=== PATIENT | male | born 1950 | race American Indian/Alaskan Native ===

== ENCOUNTER 2019-03-07 17:46 | Inpatient (IN) | payer MEDICARE, OTHER ==
[2019-03-07] MEDS ORDERED: LOPRESSOR IV ONE (18:08)
[2019-03-07] MEDS ORDERED: HEPARIN 10,000 UNITS/10 ML IV ONE (18:09)
--- NOTE | 2019-03-07 18:12 | Emergency Department Report ---
ED General Adult HPI - General Chief complaint: Weakness Stated complaint: WEAKNESS Time Seen by Provider: 03/07/19 17:46 Source: patient, EMS Mode of arrival: Stretcher Limitations: No Limitations - History of Present Illness Initial comments: Patient is a 68-year-old mellitus emergency room with complaints of weakness, headache and intermittent chest pain. Patient states the chest pain for approximately 24-48 hours. Patient states intermittent. Patient states she does have a chest pain at this time. Patient states he had chest pain when he was with EMS but after EMS given nitroglycerin and aspirin his chest pain resolved. Patient states he is still having a headache and feeling weak. Patient states headache is a 5 out of 10. Patient states that his symptoms were worsening is why he called EMS. Patient states his headache got better with the aspirin given by EMS. Patient denies blurry vision. Patient denies dizziness. -: Sudden Consistency: constant Improves with: rest Worsens with: movement Associated Symptoms: chest pain, headaches, malaise, weakness. denies: confusion, cough, diaphoresis, fever/chills, loss of appetite, nausea/vomiting, rash, seizure, shortness of breath, syncope - Related Data Home Medications Medication Instructions Recorded Confirmed Last Taken [place]-3 Fatty Acids/Fish Oil [Fish 1 cap PO DAILY 04/16/14 03/07/19 06/27/14 Oil] Aspirin [Aspirin BABY CHEW TAB] 81 mg PO QDAY 03/07/19 03/07/19 Unknown Insulin Detemir [Levemir VIAL] 25 unit SQ QAM&QHS 03/07/19 03/07/19 Unknown Insulin Regular, Human [Novolin R] See Protocol IJ QACHS 03/07/19 03/07/19 Unknown amLODIPine [Norvasc] 10 mg PO DAILY 03/07/19 03/07/19 Unknown Allergies Allergy/AdvReac Type Severity Reaction Status Date / Time No Known Allergies Allergy Verified 06/28/14 03:51 ED Review of Systems ROS: Stated complaint: WEAKNESS Other details as noted in HPI Constitutional: weakness. denies: chills, fever Eyes: denies: eye pain, eye discharge, vision change ENT: denies: ear pain, throat pain Respiratory: denies: cough, shortness of breath, wheezing Cardiovascular: chest pain. denies: palpitations Endocrine: no symptoms reported Gastrointestinal: denies: abdominal pain, nausea, diarrhea Genitourinary: denies: urgency, dysuria Musculoskeletal: denies: back pain, joint swelling, arthralgia Skin: denies: rash, lesions Neurological: headache, weakness. denies: paresthesias Psychiatric: denies: anxiety, depression Hematological/Lymphatic: denies: easy bleeding, easy bruising ED Past Medical Hx - Past Medical History Previous Medical History?: Yes Hx Hypertension: Yes Hx Diabetes: Yes Hx Liver Disease: No Hx Renal Disease: No - Surgical History Past Surgical History?: Yes Additional Surgical History: R great toe amputated (12/2014) - Family History Family history: no significant - Social History Smoking Status: Never Smoker Substance Use Type: None - Medications Home Medications: Home Medications Medication Instructions Recorded Confirmed Last Taken Type [place]-3 Fatty Acids/Fish Oil [Fish 1 cap PO DAILY 04/16/14 03/07/19 06/27/14 History Oil] Aspirin [Aspirin BABY CHEW TAB] 81 mg PO QDAY 03/07/19 03/07/19 Unknown History Insulin Detemir [Levemir VIAL] 25 unit SQ QAM&QHS 03/07/19 03/07/19 Unknown History Insulin Regular, Human [Novolin R] See Protocol IJ QACHS 03/07/19 03/07/19 Unknown History amLODIPine [Norvasc] 10 mg PO DAILY 03/07/19 03/07/19 Unknown History ED Physical Exam - General Limitations: No Limitations General appearance: alert, in no apparent distress - Head Head exam: Present: atraumatic, normocephalic - Eye Eye exam: Present: normal appearance, PERRL Pupils: Present: normal accommodation - ENT ENT exam: Present: mucous membranes moist - Neck Neck exam: Present: normal inspection - Respiratory Respiratory exam: Present: normal lung sounds bilaterally. Absent: respiratory distress, wheezes - Cardiovascular Cardiovascular Exam: Present: regular rate, normal rhythm. Absent: systolic murmur, diastolic murmur, rubs, gallop - GI/Abdominal GI/Abdominal exam: Present: soft, normal bowel sounds. Absent: distended, tende rness, guarding - Rectal Rectal exam: Present: deferred - Extremities Exam Extremities exam: Present: normal inspection - Back Exam Back exam: Present: normal inspection - Neurological Exam Neurological exam: Present: alert, oriented X3 - Psychiatric Psychiatric exam: Present: normal affect, normal mood - Skin Skin exam: Present: warm, dry, intact, normal color. Absent: rash ED Course Vital Signs 03/07/19 03/07/19 03/07/19 17:50 17:51 18:00 Temperature 98.2 F Pulse Rate 87 82 73 Respiratory 18 13 14 Rate Blood Pressure 133/72 151/73 O2 Sat by Pulse 97 97 97 Oximetry 03/07/19 03/07/19 03/07/19 18:05 18:15 18:28 Temperature Pulse Rate 76 71 Respiratory 13 15 Rate Blood Pressure 159/76 O2 Sat by Pulse 99 Oximetry 03/07/19 03/07/19 03/07/19 18:30 18:45 19:00 Temperature Pulse Rate 62 62 63 Respiratory 12 13 10 L Rate Blood Pressure 153/67 155/91 150/80 O2 Sat by Pulse 98 97 97 Oximetry 03/07/19 03/07/19 03/07/19 19:15 19:30 19:45 Temperature Pulse Rate 65 64 66 Respiratory 14 15 15 Rate Blood Pressure 155/81 155/79 157/81 O2 Sat by Pulse 99 97 97 Oximetry 03/07/19 03/07/19 03/07/19 20:01 20:15 20:30 Temperature Pulse Rate 64 63 64 Respiratory 10 L 14 16 Rate Blood Pressure 156/76 157/78 158/75 O2 Sat by Pulse 99 100 98 Oximetry 03/07/19 03/07/19 03/07/19 20:45 21:01 21:15 Temperature Pulse Rate 63 69 65 Respiratory 15 14 15 Rate Blood Pressure 160/79 167/73 174/81 O2 Sat by Pulse 98 97 99 Oximetry 03/07/19 03/07/19 03/07/19 21:30 21:45 22:00 Temperature Pulse Rate 64 69 66 Respiratory 13 16 20 Rate Blood Pressure 158/71 158/78 157/68 O2 Sat by Pulse 98 98 97 Oximetry 03/07/19 03/07/19 03/07/19 22:21 23:11 23:16 Temperature 98.1 F Pulse Rate 66 65 Respiratory 16 18 Rate Blood Pressure 144/66 151/70 O2 Sat by Pulse 99 98 Oximetry - Reevaluation(s) Reevaluation #1: Initial evaluation done. Patient had multiple EKGs done in that were transmitted to our on-call social service liaison. Patient also found to have inter mittent A. fib with RVR on the rhythm monitor but was not captured on EKG. Patient will be placed on a heparin drip and amiodarone drip as per the request of the social service liaison. Patient will also be given a statin and metoprolol 03/07/19 18:13 EKG repeated. Patient is currently on amiodarone drip and heparin drip. Patient's blood pressure stable. Patient's heart rate is improved. Patient is not going in and out of A. fib at all since given Lopressor. Patient states his symptoms are improving and his headache has resolved. 03/07/19 18:53 Patient states he is symptom free. Discussed all results with patient. Patient will be admitted to the hospitalist service. Patient agrees to plan of care. 03/07/19 19:19 - Consultations Consultation #1: Dr. Thomas, social service liaison consult to prior to arrival. Multiple EKGs sent via text to Dr. Thomas. Dr. Thomas states this is not a STEMI and wants the patient worked up medically and given amiodarone drip, heparin drip, Lopressor and a statin. 03/07/19 17:42 Consultation #2: Hospitalist consulted for admission. Hospitalist to admit patient. Hospitalist to assume care patient. 03/07/19 19:19 ED Medical Decision Making - Lab Data Result diagrams: 03/07/19 18:09 03/07/19 18:09 - EKG Data -: EKG Interpreted by Ma EKG shows normal: sinus rhythm, axis, intervals, QRS complexes, ST-T waves Rate: normal - Radiology Data Radiology results: report reviewed PROCEDURE: XR CHEST 1V AP TECHNIQUE: Chest radiograph single view. HISTORY: Weakness COMPARISONS: None . FINDINGS: Heart: Normal. Mediastinum/Vessels: Normal. Lungs/Pleural space: Normal. Bony thorax: No acute osseous abnormality. Life support devices: None. IMPRESSION: No acute cardiopulmonary abnormality. - Medical Decision Making Patient is a 68-year-old mellitus emergency room with complaints of weakness, headache and chest pain. Chest pain was intermittent over the last 24 hours. Cardiology consult prior to patient arrival due to ST elevation. Frame And Scrap Crusher of the ST elevation was secondary to LVH and early re-pole. Patient was going in and out of A. fib on the manager cardiac cath. Patient was placed on amiodarone drip and heparin drip per the cardiology request. [employer] Scrap Crusher also requested Lopressor and statin to be given. Patient was given aspirin and nitroglycerin by EMS in route. Patient's symptoms resolved with therapy. Patient was admitte d to the hospitalist service. Patient's labs unremarkable except for acute renal insufficiency. - Differential Diagnosis chest pain. Weakness. NSTEMI. caba. Critical Care Time: Yes Critical care attestation.: If time is entered above; I have spent that time in minutes in the direct care of this critically ill patient, excluding procedure time. Critical Care Time: 45 minutes ED Disposition Clinical Impression: Weakness, DIETER (acute kidney injury), New onset a-fib Afib Qualifiers: Atrial fibrillation type: paroxysmal Qualified Code(s): I48.0 - Paroxysmal atrial fibrillation Chest pain Qualifiers: Chest pain type: unspecified Qualified Code(s): R07.9 - Chest pain, unspecified Headache Qualifiers: Headache type: unspecified Headache chronicity pattern: acute headache Intractability: not intractable Qualified Code(s): R51 - Headache Disposition: -09 OP ADMIT IP TO THIS HOSP Is pt being admited?: Yes Does the pt Need Aspirin: No Condition: Critical Time of Disposition: 19:21
[2019-03-07 18:28] LABS: Basophils % (Auto) 0.4 % (0.0-1.8); Eosinophils # (Auto) 0.1 K/mm3 (0.0-0.4); Eosinophils % (Auto) 0.9 % (0.0-4.3); Hematocrit 34.4 % (35.5-45.6); Hemoglobin 11.1 gm/dl (11.8-15.2); Lymphocytes # (Auto) 1.4 K/mm3 (1.2-5.4); Lymphocytes % (Auto) 15.9 % (13.4-35.0); Mean Corpuscular HGB Conc 32 % (32-34); Mean Corpuscular Volume 84 fl (84-94); Monocytes # (Auto) 0.6 K/mm3 (0.0-0.8); Monocytes % (Auto) 6.6 % (0.0-7.3); Platelet Count 323 K/mm3 (140-440); Red Blood Count 4.11 M/mm3 (3.65-5.03); Red Cell Distribution Width 13.9 % (13.2-15.2)
[2019-03-07 18:44] LABS: INR 1.1 (0.87-1.13)
[2019-03-07 18:45] LABS: Partial Thromboplastin Time 27.7 Sec. (24.2-36.6)
--- NOTE | 2019-03-07 18:48 | XRay Report ---
PROCEDURE: XR CHEST 1V AP TECHNIQUE: Chest radiograph single view. HISTORY: Weakness COMPARISONS: None . FINDINGS: Heart: Normal. Mediastinum/Vessels: Normal. Lungs/Pleural space: Normal. Bony thorax: No acute osseous abnormality. Life support devices: None. IMPRESSION: No acute cardiopulmonary abnormality. This document is electronically signed by Claudine Mckoy MD., March 07 2019 06:46:22 PM ET
[2019-03-07] MEDS: CORDARONE 150 MG in D5W 97 ML IV ONE ×2 (18:49→21:09)
[2019-03-07] MEDS: HEPARIN/ 0.45% NACL-25,000 UNIT/500 ML 25,000 UNIT/500 ML BAG IV SCH (18:50)
[2019-03-07] MEDS ORDERED: HEPARIN/ 0.45% NACL-25,000 UNIT/500 ML 25,000 UNIT/500 ML BAG IV SCH (19:00)
[2019-03-07] MEDS ORDERED: CORDARONE 900 MG in D5W 482 ML IV SCH (19:00)
[2019-03-07 19:11] LABS: Albumin 3.3 g/dL (3.9-5)
[2019-03-07] MEDS ORDERED: ULTRAM PO PRN (21:12)
[2019-03-07] MEDS ORDERED: SODIUM CHLORIDE FLUSH SYRINGE 10 ML IV PRN (21:13)
[2019-03-07] MEDS ORDERED: ZOFRAN IV PRN (21:13)
[2019-03-07] MEDS ORDERED: TYLENOL PO PRN (21:13)
[2019-03-07] MEDS ORDERED: MORPHINE IV PRN (21:14)
[2019-03-07] MEDS ORDERED: IBUPROFEN PO PRN (21:14)
[2019-03-07] MEDS ORDERED: NACL 0.9% 1000 ML 1,000 ML IV SCH (22:00)
[2019-03-07] MEDS: DIABETA PO SCH (23:29)
[2019-03-07] MEDS: GLUCOPHAGE PO SCH (23:30)
[2019-03-08] MEDS: PEPCID PO SCH ×3 (00:01→22:14)
[2019-03-08] MEDS: ZESTRIL PO SCH ×2 (00:05→09:54)
[2019-03-08] MEDS: SODIUM CHLORIDE FLUSH SYRINGE 10 ML IV SCH ×3 (00:05→22:15)
[2019-03-08] MEDS: LOPRESSOR PO SCH ×3 (01:15→22:15)
[2019-03-08 05:00] LABS: Basophils % (Auto) 0.3 % (0.0-1.8); Eosinophils # (Auto) 0.1 K/mm3 (0.0-0.4); Eosinophils % (Auto) 1.1 % (0.0-4.3); Hematocrit 33.5 % (35.5-45.6); Hemoglobin 11.1 gm/dl (11.8-15.2); Lymphocytes # (Auto) 2.1 K/mm3 (1.2-5.4); Lymphocytes % (Auto) 27.3 % (13.4-35.0); Mean Corpuscular HGB Conc 33 % (32-34); Mean Corpuscular Volume 82 fl (84-94); Monocytes # (Auto) 0.6 K/mm3 (0.0-0.8); Monocytes % (Auto) 7.8 % (0.0-7.3); Platelet Count 335 K/mm3 (140-440); Red Blood Count 4.08 M/mm3 (3.65-5.03); Red Cell Distribution Width 13.7 % (13.2-15.2)
[2019-03-08 05:11] LABS: Alanine Aminotransferase 16 units/L (7-56); Albumin 3.3 g/dL (3.9-5); BUN/Creatinine Ratio 21; Blood Urea Nitrogen 27 mg/dL (9-20); Calcium 9.3 mg/dL (8.4-10.2); Hemolysis Index 1
[2019-03-08 05:33] LABS: Bacteria,Urine 1+ /HPF (Negative); Bilirubin,Urine NEG (Negative); Blood,Urine SM (Negative); Color,Urine Straw (Yellow); Urobilinogen,Urine < 2.0 mg/dL (<2.0); WBC,Urine < 1.0 /HPF (0.0-6.0)
[2019-03-08 05:35] LABS: Amphetamine Screen,Urine PRESUMPTIVE NEGATIVE; Benzodiazepines Screen,Urine PRESUMPTIVE NEGATIVE; Cannabinoid Screen,Urine PRESUMPTIVE NEGATIVE; Cocaine Screen,Urine PRESUMPTIVE NEGATIVE; Methadone Screen,Urine PRESUMPTIVE NEGATIVE; Opiate Screen,Urine PRESUMPTIVE NEGATIVE
--- NOTE | 2019-03-08 07:27 | History and Physical Report ---
History of Present Illness Date of examination: 03/07/19 Date of admission: 03/07/19 20:35 Chief complaint: Chest pain off and on for 24 hours History of present illness: 68-year-old mellitus emergency room with complaints of weakness, headache and intermittent chest pain. Patient states the chest pain for approximately 24-48 hours. Patient states intermittent. No radiation. Patient states he had chest pain when he was with EMS but after EMS given nitroglycerin and aspirin his chest pain resolved. Patient states he is still having a headache and feels weak. Patient had a run of AFIB with rvr in ED and had chest pain associated with it. No SOB or Orthopnea Past Medical History Previous Medical History?: Yes Hypertension: Yes Diabetes: Yes - Surgical History Past Surgical History?: Yes Additional Surgical History: R second toe amputated (12/2014) Family History Family history: no significant Social History Smoking Status: Never Smoker Substance Use Type: None Medications Home Medications: Home Medications Medication Instructions Recorded Confirmed Last Taken Type [place]-3 Fatty Acids/Fish Oil [Fish 1 cap PO DAILY 04/16/14 03/07/19 06/27/14 History Oil] Aspirin [Aspirin BABY CHEW TAB] 81 mg PO QDAY 03/07/19 03/07/19 Unknown History Insulin Detemir [Levemir VIAL] 25 unit SQ QAM&QHS 03/07/19 03/07/19 Unknown History Insulin Regular, Human [Novolin R] See Protocol IJ QACHS 03/07/19 03/07/19 Unknown History amLODIPine [Norvasc] 10 mg PO DAILY 03/07/19 03/07/19 Unknown History Review of Systems ROS: Stated complaint: WEAKNESS Other details as noted in HPI Constitutional: weakness. denies: chills, fever Eyes: denies: eye pain, eye discharge, vision change ENT: denies: ear pain, throat pain Respiratory: denies: cough, shortness of breath, wheezing Cardiovascular: chest pain. denies: palpitations Endocrine: no symptoms reported Gastrointestinal: denies: abdominal pain, nausea, diarrhea Genitourinary: denies: urgency, dysuria Musculoskeletal: denies: back pain, joint swelling, arthralgia Skin: denies: rash, lesions Neurological: headache, weakness. denies: paresthesias Psychiatric: denies: anxiety, depression Hematological/Lymphatic: denies: easy bleeding, easy bruising Medications and Allergies Allergies Allergy/AdvReac Type Severity Reaction Status Date / Time No Known Allergies Allergy Verified 06/28/14 03:51 Home Medications Medication Instructions Recorded Confirmed Last Taken Type [place]-3 Fatty Acids/Fish Oil [Fish 1 cap PO DAILY 04/16/14 03/07/19 06/27/14 History Oil] Aspirin [Aspirin BABY CHEW TAB] 81 mg PO QDAY 03/07/19 03/07/19 Unknown History Insulin Detemir [Levemir VIAL] 25 unit SQ QAM&QHS 03/07/19 03/07/19 Unknown History Insulin Regular, Human [Novolin R] See Protocol IJ QACHS 03/07/19 03/07/19 Unknown History amLODIPine [Norvasc] 10 mg PO DAILY 03/07/19 03/07/19 Unknown History Active Meds: Active Medications Acetaminophen (Tylenol) 650 mg PO Q4H PRN PRN Reason: Pain MILD(1-3)/Fever >100.5/SOMMERS Atorvastatin Calcium (Lipitor) 80 mg PO QHS [facility] Last Admin: 03/08/19 00:02 Dose: 80 mg Documented by: Famotidine (Pepcid) 20 mg PO BID HAIR Last Admin: 03/08/19 00:01 Dose: 20 mg Documented by: Fish Oil (Fish Oil) 1,000 mg PO DAILY HAIR Glyburide (Diabeta) 10 mg PO QDDIAB [facility] Last Admin: 03/07/19 23:29 Dose: Not Given Documented by: Amiodarone HCl 900 mg/ (Dextrose) 500 mls @ 33.333 mls/hr IV DIRECT HAIR; Protocol Last Admin: 03/07/19 19:05 Dose: 1 mg/min, 33.333 mls/hr Documented by: Heparin Sodium/Sodium Chloride (Heparin/ 0.45% Nacl-25,000 Unit/500 Ml) 25,000 unit in 500 mls @ 20 mls/hr IV TITRATE HAIR; Protocol Last Admin: 03/07/19 18:50 Dose: 1,000 units/hr, 20 mls/hr Documented by: Sodium Chloride (Nacl 0.9% 1000 Ml) 1,000 mls @ 75 mls/hr IV DIRECT HAIR Stop: 03/08/19 11:00 Ibuprofen (Ibuprofen) 600 mg PO Q6H PRN PRN Reason: Pain, Mild (1-3) Lisinopril (Zestril) 20 mg PO DAILY [facility] Last Admin: 03/08/19 00:05 Dose: Not Given Documented by: Metformin HCl (Glucophage) 1,000 mg PO BIDDIAB [facility] Last Admin: 03/07/19 23:30 Dose: Not Given Documented by: Morphine Sulfate (Morphine) 2 mg IV Q4H PRN PRN Reason: Pain, Moderate (4-6) Ondansetron HCl (Zofran) 4 mg IV Q8H PRN PRN Reason: Nausea And Vomiting Sodium Chloride (Sodium Chloride Flush Syringe 10 Ml) 10 ml IV BID [facility] Last Admin: 03/08/19 00:05 Dose: Not Given Documented by: Sodium Chloride (Sodium Chloride Flush Syringe 10 Ml) 10 ml IV PRN PRN PRN Reason: LINE FLUSH Tramadol HCl (Ultram) 50 mg PO Q6HR PRN PRN Reason: Pain Exam - Constitutional Vitals: Temp Pulse Resp BP Pulse Ox 98.1 F 62 18 173/70 96 03/08/19 05:23 03/08/19 05:22 03/08/19 05:22 03/08/19 05:22 03/08/19 05:22 General appearance: Present: no acute distress, well-nourished - EENT Eyes: Present: PERRL ENT: hearing intact, clear oral mucosa - Neck Neck: Present: supple, normal ROM - Respiratory Respiratory effort: normal Respiratory: bilateral: CTA - Cardiovascular Heart rate: 80 Rhythm: regular Heart Sounds: Present: S1 & S2. Absent: rub, click - Extremities Extremities: no ischemia, pulses intact, pulses symmetrical, No edema Peripheral Pulses: within normal limits - Abdominal General gastrointestinal: Present: soft, non-tender, non-distended, normal bowel sounds Male genitourinary: Present: normal - Rectal Rectal Exam: deferred - Integumentary Integumentary: Present: clear, warm, dry - Musculoskeletal Musculoskeletal: gait normal, strength equal bilaterally - Psychiatric Psychiatric: appropriate mood/affect, intact judgment & insight - Neurologic Neurologic: CNII-XII intact, moves all extremities - Allied Health Allied health notes reviewed: nursing Results - Labs CBC & Chem 7: 03/08/19 04:30 03/08/19 04:30 Labs: Laboratory Last Values WBC 7.8 K/mm3 (4.5-11.0) 03/08/19 04:30 RBC 4.08 M/mm3 (3.65-5.03) 03/08/19 04:30 Hgb 11.1 gm/dl (11.8-15.2) L 03/08/19 04:30 Hct 33.5 % (35.5-45.6) L 03/08/19 04:30 MCV 82 fl (84-94) L 03/08/19 04:30 MCH 27 pg (28-32) L 03/08/19 04:30 MCHC 33 % (32-34) 03/08/19 04:30 RDW 13.7 % (13.2-15.2) 03/08/19 04:30 Plt Count 335 K/mm3 (140-440) 03/08/19 04:30 Lymph % (Auto) 27.3 % (13.4-35.0) 03/08/19 04:30 [place] % (Auto) 7.8 % (0.0-7.3) H 03/08/19 04:30 Eos % (Auto) 1.1 % (0.0-4.3) 03/08/19 04:30 Baso % (Auto) 0.3 % (0.0-1.8) 03/08/19 04:30 Lymph # 2.1 K/mm3 (1.2-5.4) 03/08/19 04:30 [place] # 0.6 K/mm3 (0.0-0.8) 03/08/19 04:30 Eos # 0.1 K/mm3 (0.0-0.4) 03/08/19 04:30 Baso # 0.0 K/mm3 (0.0-0.1) 03/08/19 04:30 Seg Neutrophils % 63.5 % (40.0-70.0) 03/08/19 04:30 Seg Neutrophils # 5.0 K/mm3 (1.8-7.7) 03/08/19 04:30 PT 13.9 Sec. (12.2-14.9) 03/07/19 18:16 INR 1.10 (0.87-1.13) 03/07/19 18:16 APTT 27.7 Sec. (24.2-36.6) 03/07/19 18:16 Heparin Anti-Xa Level 0.34 U.I./ml (0.3-0.7) 03/08/19 01:10 Sodium 137 mmol/L (137-145) 03/08/19 04:30 Potassium 4.1 mmol/L (3.6-5.0) 03/08/19 04:30 Chloride 104.6 mmol/L (98-107) 03/08/19 04:30 Carbon Dioxide 21 mmol/L (22-30) L 03/08/19 04:30 16 mmol/L 03/08/19 04:30 BUN 27 mg/dL (9-20) H 03/08/19 04:30 1.3 mg/dL (0.8-1.5) 03/08/19 04:30 Estimated GFR > 60 ml/min 03/08/19 04:30 21 % 03/08/19 04:30 Glucose 169 mg/dL (75-100) H 03/08/19 04:30 9.2 % (4-6) H 03/07/19 18:09 Calcium 9.3 mg/dL (8.4-10.2) 03/08/19 04:30 0.20 mg/dL (0.1-1.2) 03/08/19 04:30 AST 15 units/L (5-40) 03/08/19 04:30 ALT 16 units/L (7-56) 03/08/19 04:30 56 units/L (35-129) 03/08/19 04:30 126 units/L (55-170) 03/07/19 18:09 < 0.010 ng/mL (0.00-0.029) 03/08/19 04:30 7.7 g/dL (6.3-8.2) 03/08/19 04:30 3.3 g/dL (3.9-5) L 03/08/19 04:30 0.8 % 03/08/19 04:30 Straw (Yellow) 03/08/19 05:12 Clear (Clear) 03/08/19 05:12 6.0 (5.0-7.0) 03/08/19 05:12 Ur Specific [place] 1.015 (1.003-1.030) 03/08/19 05:12 100 mg/dl mg/dL (Negative) 03/08/19 05:12 150 mg/dL (Negative) 03/08/19 05:12 Neg mg/dL (Negative) 03/08/19 05:12 Sm (Negative) 03/08/19 05:12 Neg (Negative) 03/08/19 05:12 Neg (Negative) 03/08/19 05:12 < 2.0 mg/dL (<2.0) 03/08/19 05:12 Ur Leukocyte Esterase Neg (Negative) 03/08/19 05:12 < 1.0 /HPF (0.0-6.0) 03/08/19 05:12 3.0 /HPF (0.0-6.0) 03/08/19 05:12 1+ /HPF (Negative) 03/08/19 05:12 Presumptive negative 03/08/19 05:12 Presumptive negative 03/08/19 05:12 Ur Barbiturates Screen Presumptive negative 03/08/19 05:12 Ur Phencyclidine Scrn Presumptive negative 03/08/19 05:12 Ur Amphetamines Screen Presumptive negative 03/08/19 05:12 U Benzodiazepines Scrn Presumptive negative 03/08/19 05:12 Presumptive negative 03/08/19 05:12 U Marijuana (THC) Screen Presumptive negative 03/08/19 05:12 Disclamer 03/08/19 05:12 Short CBC 03/07/19 03/08/19 Range/Units 18:09 04:30 WBC 9.0 7.8 (4.5-11.0) K/mm3 Hgb 11.1 L 11.1 L (11.8-15.2) gm/dl Hct 34.4 L 33.5 L (35.5-45.6) % Plt Count 323 335 (140-440) K/mm3 BMP 03/07/19 03/08/19 18:09 04:30 Sodium 137 137 Potassium 3.9 4.1 Chloride 96.8 L 104.6 Carbon Dioxide 20 L 21 L BUN 32 H 27 H Creatinine 1.6 H 1.3 Glucose 249 H 169 H Calcium 9.0 9.3 Cardiac Enzymes 03/07/19 03/07/19 03/07/19 Range/Units 18:09 18:09 23:32 Total Creatine Kinase 126 (55-170) units/L Troponin T < 0.010 < 0.010 (0.00-0.029) ng/mL 03/08/19 Range/Units 04:30 Total Creatine Kinase (55-170) units/L Troponin T < 0.010 (0.00-0.029) ng/mL Liver Function 03/07/19 03/08/19 Range/Units 18:09 04:30 Total Bilirubin 0.20 0.20 (0.1-1.2) mg/dL AST 17 15 (5-40) units/L ALT 16 16 (7-56) units/L Alkaline Phosphatase 55 56 (35-129) units/L Albumin 3.3 L 3.3 L (3.9-5) g/dL Urine 03/08/19 Range/Units 05:12 Urine Color Straw (Yellow) Urine pH 6.0 (5.0-7.0) Ur Specific [place] 1.015 (1.003-1.030) Urine Protein 100 mg/dl (Negative) mg/dL Urine Glucose (UA) 150 (Negative) mg/dL - Imaging and Cardiology EKG: report reviewed (NSR 64/min LVH) Chest x-ray: report reviewed (NAF) Assessment and Plan Advance Directives: Yes (Full code) VTE prophylaxis?: Chemical Plan of care discussed with patient/family: Yes - Patient Problems (1) Chest pain Current Visit: Yes Status: Acute Qualifiers: Chest pain type: unspecified Qualified Code(s): R07.9 - Chest pain, unspecified Plan to address problem: Intermittent R/o [place] protocol Serial troponins and Lexiscan in AM Cardiology consult (2) New onset a-fib Current Visit: Yes Status: Acute Plan to address problem: Paroxysmal No EKG's corroborating the AFIB Happened in ED Po cardizem 120 mg po qd initiated No anticoagulation Check Rhythm strips (3) HTN (hypertension) Current Visit: Yes Status: Chronic Qualifiers: Hypertension type: essential hypertension Qualified Code(s): I10 - Essential (primary) hypertension Plan to address problem: Cont antihypertensives (4) IDDM (insulin dependent diabetes mellitus) Current Visit: Yes Status: Chronic Plan to address problem: Cont Insulin and coverage Check A1c (5) HLD (hyperlipidemia) Current Visit: Yes Status: Chronic Qualifiers: Hyperlipidemia type: mixed hyperlipidemia Qualified Code(s): E78.2 - Mixed hyperlipidemia Plan to address problem: Cont statin (6) DIETER (acute kidney injury) Current Visit: Yes Status: Acute Plan to address problem: Sec to vasomotor nephropathy IV Fluids for now (7) DVT prophylaxis Current Visit: Yes Status: Acute Plan to address problem: On Lovenox and GI prophylaxis
[2019-03-08] MEDS ORDERED: LEXISCAN IV ONE ×2 (07:35→07:44)
[2019-03-08 08:35] LABS: Mucus,Urine FEW /HPF
[2019-03-08] MEDS: CARDIZEM PO SCH ×3 (09:03→17:15)
[2019-03-08] MEDS: GLUCOPHAGE PO SCH ×2 (09:03→17:15)
[2019-03-08] MEDS: DIABETA PO SCH (09:03)
[2019-03-08] MEDS: BABY ASPIRIN PO SCH (09:53)
[2019-03-08] MEDS: FISH OIL PO SCH (09:53)
[2019-03-08] MEDS: NORVASC PO SCH (09:54)
[2019-03-08] MEDS: HEPARIN/ 0.45% NACL-25,000 UNIT/500 ML 25,000 UNIT/500 ML BAG IV SCH (10:57)
--- NOTE | 2019-03-08 17:28 | Consultation ---
History of Present Illness Consult date: 03/08/19 Consult reason: atrial fibrillation, chest pain History of present illness: Patient is a 68-year-old man with a history of hypertension and diabetes, no prior cardiac history. He presented to the emergency room yesterday with compl aints of dizziness and weakness and nonexertional chest pain. Serial EKGs in the emergency room showed a sinus rhythm with left ventricular hypertrophy and repolarization abnormalities of LVH. No acute ST or T-wave changes of ischemia or infarction. Serial cardiac troponin levels were normal. It is reported that during his emergency room course, he was found on the monitor to have frequent, short bursts of rapid atrial fibrillation, reportedly not captured on ECG or telemetry strips. In the emergency room, he was started on intravenous amiodarone and intravenous heparin. During his telemetry course in the hospital, there has been a stable sinus rhythm both on the strips on the floor and on the serial multiple ECGs performed. The patient denies any prior history of atrial fibrillation all prior treatment with oral anticoagulation. Chest x-ray shows normal cardiac silhouette, clear lungs, benign chest x-ray. Echocardiogram is pending for left ventricular function assessment. Past History Past Medical History: diabetes, hypertension Medications and Allergies Allergies Allergy/AdvReac Type Severity Reaction Status Date / Time No Known Allergies Allergy Verified 06/28/14 03:51 Home Medications Medication Instructions Recorded Confirmed Last Taken Type [place]-3 Fatty Acids/Fish Oil [Fish 1 cap PO DAILY 04/16/14 03/07/19 06/27/14 History Oil] Aspirin [Aspirin BABY CHEW TAB] 81 mg PO QDAY 03/07/19 03/07/19 Unknown History Insulin Detemir [Levemir VIAL] 25 unit SQ QAM&QHS 03/07/19 03/07/19 Unknown History Insulin Regular, Human [Novolin R] See Protocol IJ QACHS 03/07/19 03/07/19 Unknown History amLODIPine [Norvasc] 10 mg PO DAILY 03/07/19 03/07/19 Unknown History Active Meds: Active Medications Acetaminophen (Tylenol) 650 mg PO Q4H PRN PRN Reason: Pain MILD(1-3)/Fever >100.5/SOMMERS Amlodipine Besylate (Norvasc) 10 mg PO DAILY [facility] Last Admin: 03/08/19 09:54 Dose: 10 mg Documented by: Apixaban (Eliquis) 5 mg PO Q12HR [facility]; Protocol Aspirin (Baby Aspirin) 81 mg PO QDAY [facility] Last Admin: 03/08/19 09:53 Dose: 81 mg Documented by: Atorvastatin Calcium (Lipitor) 80 mg PO QHS [facility] Last Admin: 03/08/19 00:02 Dose: 80 mg Documented by: Famotidine (Pepcid) 20 mg PO BID [facility] Last Admin: 03/08/19 09:53 Dose: 20 mg Documented by: Fish Oil (Fish Oil) 1,000 mg PO DAILY [facility] Last Admin: 03/08/19 09:53 Dose: 1,000 mg Documented by: Glyburide (Diabeta) 10 mg PO QDDIAB [facility] Last Admin: 03/08/19 09:03 Dose: Not Given Documented by: Ibuprofen (Ibuprofen) 600 mg PO Q6H PRN PRN Reason: Pain, Mild (1-3) Insulin Glargine (Lantus) 25 units SUB-Q QHS [facility] Lisinopril (Zestril) 20 mg PO DAILY [facility] Last Admin: 03/08/19 09:54 Dose: 20 mg Documented by: Metformin HCl (Glucophage) 1,000 mg PO BIDDIAB [facility] Last Admin: 03/08/19 17:15 Dose: 1,000 mg Documented by: Metoprolol Tartrate (Lopressor) 25 mg PO Q8H [facility] Morphine Sulfate (Morphine) 2 mg IV Q4H PRN PRN Reason: Pain, Moderate (4-6) Ondansetron HCl (Zofran) 4 mg IV Q8H PRN PRN Reason: Nausea And Vomiting Sodium Chloride (Sodium Chloride Flush Syringe 10 Ml) 10 ml IV BID [facility] Last Admin: 03/08/19 09:55 Dose: 10 ml Documented by: Sodium Chloride (Sodium Chloride Flush Syringe 10 Ml) 10 ml IV PRN PRN PRN Reason: LINE FLUSH Tramadol HCl (Ultram) 50 mg PO Q6HR PRN PRN Reason: Pain Review of Systems Cardiovascular: chest pain, lightheadedness, shortness of breath, no orthopnea, no palpitations, no rapid/irregular heart beat, no edema, no syncope Physical Examination Vital Signs Pulse Resp Pulse Ox 87 18 97 03/07/19 17:50 03/07/19 17:50 03/07/19 17:50 General appearance: no acute distress HEENT: Positive: PERRL Neck: Positive: neck supple Cardiac: Positive: Reg Rate and Rhythm Lungs: Positive: clear to auscultation Neuro: Positive: Grossly Intact Abdomen: Positive: Soft Male genitourinary: Positive: deferred Skin: Positive: Clear Extremities: Absent: edema Results 03/08/19 04:30 03/08/19 04:30 Cardiac Enzymes 03/07/19 03/08/19 Range/Units 18:09 04:30 AST 17 15 (5-40) units/L Coagulation 03/07/19 Range/Units 18:16 PT 13.9 (12.2-14.9) Sec. INR 1.10 (0.87-1.13) APTT 27.7 (24.2-36.6) Sec. CBC 03/07/19 03/08/19 Range/Units 18:09 04:30 WBC 9.0 7.8 (4.5-11.0) K/mm3 RBC 4.11 4.08 (3.65-5.03) M/mm3 Hgb 11.1 L 11.1 L (11.8-15.2) gm/dl Hct 34.4 L 33.5 L (35.5-45.6) % Plt Count 323 335 (140-440) K/mm3 Lymph # 1.4 2.1 (1.2-5.4) K/mm3 [place] # 0.6 0.6 (0.0-0.8) K/mm3 Eos # 0.1 0.1 (0.0-0.4) K/mm3 Baso # 0.0 0.0 (0.0-0.1) K/mm3 Comprehensive Metabolic Panel 03/07/19 03/08/19 Range/Units 18:09 04:30 Sodium 137 137 (137-145) mmol/L Potassium 3.9 4.1 (3.6-5.0) mmol/L Chloride 96.8 L 104.6 (98-107) mmol/L Carbon Dioxide 20 L 21 L (22-30) mmol/L BUN 32 H 27 H (9-20) mg/dL Creatinine 1.6 H 1.3 (0.8-1.5) mg/dL Glucose 249 H 169 H (75-100) mg/dL Calcium 9.0 9.3 (8.4-10.2) mg/dL AST 17 15 (5-40) units/L ALT 16 16 (7-56) units/L Alkaline Phosphatase 55 56 (35-129) units/L Total Protein 8.3 H 7.7 (6.3-8.2) g/dL Albumin 3.3 L 3.3 L (3.9-5) g/dL EKG interpretations - Telemetry EKG Rhythm: Sinus Rhythm Assessment and Plan - Patient Problems (1) Chest pain Current Visit: Yes Status: Acute Qualifiers: Chest pain type: unspecified Qualified Code(s): R07.9 - Chest pain, unspecified Plan to address problem: Chest pains atypical, EKG shows no acute ischemic changes, cardiac troponin levels are normal. Will proceed with an exercise thallium stress test for chest pain assessment. (2) Paroxysmal atrial fibrillation Current Visit: Yes Status: Acute Plan to address problem: Paroxysmal atrial fibrillation was visually reported while patient was being monitored in the emergency room. The atrial fibrillation was not captured on a telemetry strip or 12-lead EKG. We will stop amiodarone and heparin, use beta nancy for paroxysmal atrial fibrillation, and add oral anticoagulation. Echocardiogram will be done for left ventricular function assessment, and a thyroid-stimulating hormone level will be ordered.
--- NOTE | 2019-03-08 18:14 | Progress Note ---
Assessment and Plan - Patient Problems (1) DIETER (acute kidney injury) Current Visit: Yes Status: Acute Plan to address problem: Acute kidney injury and irritant vasomotor nephropathy. We'll follow-up a.m. has resolved. Creatinine 1.3. (2) New onset a-fib Current Visit: Yes Status: Acute Plan to address problem: A villagomez has been regular since hospital stay. I have not seen any clear evidence of atrial fibrillation a group cardiology will discontinue amiodarone. Treat with AV dm blocking agent alone. This will also treat patient's blood pressure and observe further. We'll follow up with echocardiogram to see if there is any structural heart disease causing the problem. Also await thyroid tests. (3) HLD (hyperlipidemia) Current Visit: Yes Status: Chronic Qualifiers: Hyperlipidemia type: mixed hyperlipidemia Qualified Code(s): E78.2 - Mixed hyperlipidemia Plan to address problem: LDL goal less than 70 will continue statin. (4) HTN (hypertension) Current Visit: Yes Status: Chronic Qualifiers: Hypertension type: essential hypertension Qualified Code(s): I10 - Essential (primary) hypertension Plan to address problem: Issue now placed on Cardizem. Not sure if he needs that and amlodipine. We'll discontinue one of those. (5) IDDM (insulin dependent diabetes mellitus) Current Visit: Yes Status: Chronic Plan to address problem: We'll obtain Accu-Chek follow sliding-scale insulin for now. History Interval history: Patient 68-year-old presented with a chief complaint of chest pain for 24-48 hours was all with nitroglycerin and aspirin upon approach. Patient was noted to have a run of A. fib and was not captured on rhythm strip as well. Patient currently does not have any chest pain no shortness of breath no dyspnea on exertion. Resting comfortably. Cardiac isoenzymes have been unremarkable as well. Hospitalist Physical - Constitutional Vitals: Temp Pulse Resp BP Pulse Ox 97.9 F 63 18 146/67 97 03/08/19 16:50 03/08/19 17:15 03/08/19 16:50 03/08/19 17:15 03/08/19 16:50 General appearance: Present: no acute distress - EENT Eyes: Present: PERRL, EOM intact ENT: hearing intact, clear oral mucosa, dentition normal - Neck Neck: Present: supple, normal ROM - Respiratory Respiratory: bilateral: CTA - Cardiovascular Rhythm: regular - Extremities Extremities: no ischemia, pulses intact, pulses symmetrical, No edema, normal temperature, normal color, Full ROM Peripheral Pulses: within normal limits - Abdominal General gastrointestinal: soft, non-tender, non-distended, normal bowel sounds - Integumentary Integumentary: Present: clear, warm, dry, erythema. Absent: jaundice, rash, clammy, pale - Psychiatric Psychiatric: appropriate mood/affect, memory intact - Neurologic Neurologic: CNII-XII intact, moves all extremities Results - Labs CBC & Chem 7: 03/08/19 04:30 03/08/19 04:30 Labs: Laboratory Last Values WBC 7.8 K/mm3 (4.5-11.0) 03/08/19 04:30 RBC 4.08 M/mm3 (3.65-5.03) 03/08/19 04:30 Hgb 11.1 gm/dl (11.8-15.2) L 03/08/19 04:30 Hct 33.5 % (35.5-45.6) L 03/08/19 04:30 MCV 82 fl (84-94) L 03/08/19 04:30 MCH 27 pg (28-32) L 03/08/19 04:30 MCHC 33 % (32-34) 03/08/19 04:30 RDW 13.7 % (13.2-15.2) 03/08/19 04:30 Plt Count 335 K/mm3 (140-440) 03/08/19 04:30 Lymph % (Auto) 27.3 % (13.4-35.0) 03/08/19 04:30 [place] % (Auto) 7.8 % (0.0-7.3) H 03/08/19 04:30 Eos % (Auto) 1.1 % (0.0-4.3) 03/08/19 04:30 Baso % (Auto) 0.3 % (0.0-1.8) 03/08/19 04:30 Lymph # 2.1 K/mm3 (1.2-5.4) 03/08/19 04:30 [place] # 0.6 K/mm3 (0.0-0.8) 03/08/19 04:30 Eos # 0.1 K/mm3 (0.0-0.4) 03/08/19 04:30 Baso # 0.0 K/mm3 (0.0-0.1) 03/08/19 04:30 Seg Neutrophils % 63.5 % (40.0-70.0) 03/08/19 04:30 Seg Neutrophils # 5.0 K/mm3 (1.8-7.7) 03/08/19 04:30 PT 13.9 Sec. (12.2-14.9) 03/07/19 18:16 INR 1.10 (0.87-1.13) 03/07/19 18:16 APTT 27.7 Sec. (24.2-36.6) 03/07/19 18:16 Heparin Anti-Xa Level 0.25 U.I./ml (0.3-0.7) L 03/08/19 09:49 Sodium 137 mmol/L (137-145) 03/08/19 04:30 Potassium 4.1 mmol/L (3.6-5.0) 03/08/19 04:30 Chloride 104.6 mmol/L (98-107) 03/08/19 04:30 Carbon Dioxide 21 mmol/L (22-30) L 03/08/19 04:30 16 mmol/L 03/08/19 04:30 BUN 27 mg/dL (9-20) H 03/08/19 04:30 1.3 mg/dL (0.8-1.5) 03/08/19 04:30 Estimated GFR > 60 ml/min 03/08/19 04:30 21 % 03/08/19 04:30 Glucose 169 mg/dL (75-100) H 03/08/19 04:30 POC Glucose 298 (70-105) H 03/08/19 17:10 9.2 % (4-6) H 03/07/19 18:09 Calcium 9.3 mg/dL (8.4-10.2) 03/08/19 04:30 0.20 mg/dL (0.1-1.2) 03/08/19 04:30 AST 15 units/L (5-40) 03/08/19 04:30 ALT 16 units/L (7-56) 03/08/19 04:30 56 units/L (35-129) 03/08/19 04:30 126 units/L (55-170) 03/07/19 18:09 < 0.010 ng/mL (0.00-0.029) 03/08/19 09:49 7.7 g/dL (6.3-8.2) 03/08/19 04:30 3.3 g/dL (3.9-5) L 03/08/19 04:30 0.8 % 03/08/19 04:30 Straw (Yellow) 03/08/19 05:12 Clear (Clear) 03/08/19 05:12 6.0 (5.0-7.0) 03/08/19 05:12 Ur Specific [place] 1.015 (1.003-1.030) 03/08/19 05:12 100 mg/dl mg/dL (Negative) 03/08/19 05:12 150 mg/dL (Negative) 03/08/19 05:12 Neg mg/dL (Negative) 03/08/19 05:12 Sm (Negative) 03/08/19 05:12 Neg (Negative) 03/08/19 05:12 Neg (Negative) 03/08/19 05:12 < 2.0 mg/dL (<2.0) 03/08/19 05:12 Ur Leukocyte Esterase Neg (Negative) 03/08/19 05:12 < 1.0 /HPF (0.0-6.0) 03/08/19 05:12 3.0 /HPF (0.0-6.0) 03/08/19 05:12 1+ /HPF (Negative) 03/08/19 05:12 Few /HPF 03/08/19 05:12 Presumptive negative 03/08/19 05:12 Presumptive negative 03/08/19 05:12 Ur Barbiturates Screen Presumptive negative 03/08/19 05:12 Ur Phencyclidine Scrn Presumptive negative 03/08/19 05:12 Ur Amphetamines Screen Presumptive negative 03/08/19 05:12 U Benzodiazepines Scrn Presumptive negative 03/08/19 05:12 Presumptive negative 03/08/19 05:12 U Marijuana (THC) Screen Presumptive negative 03/08/19 05:12 Disclamer 03/08/19 05:12 Active Medications - Current Medications Current Medications: Generic Name Dose Route Start Last Admin Trade Name Freq PRN Reason Stop Dose Admin Acetaminophen 650 mg 03/07/19 21:13 Tylenol PO Q4H PRN Pain MILD(1-3)/Fever >100.5/SOMMERS Amlodipine Besylate 10 mg 03/08/19 10:00 03/08/19 09:54 Norvasc PO 10 mg DAILY [facility] Administration Apixaban 5 mg 03/08/19 22:00 Eliquis PO Q12HR [facility] Protocol Aspirin 81 mg 03/08/19 10:00 03/08/19 09:53 Baby Aspirin PO 81 mg QDAY [facility] Administration Atorvastatin Calcium 80 mg 03/07/19 22:00 03/08/19 00:02 Lipitor PO 80 mg QHS [facility] Administration Famotidine 20 mg 03/07/19 22:00 03/08/19 09:53 Pepcid PO 20 mg BID [facility] Administration Fish Oil 1,000 mg 03/08/19 10:00 03/08/19 09:53 Fish Oil PO 1,000 mg DAILY [facility] Administration Glyburide 10 mg 03/07/19 21:15 03/08/19 09:03 Diabeta PO Not Given QDDIAB [facility] Ibuprofen 600 mg 03/07/19 21:14 Ibuprofen PO Q6H PRN Pain, Mild (1-3) Insulin Glargine 25 units 03/08/19 22:00 Lantus SUB-Q QHS [facility] Lisinopril 20 mg 03/07/19 22:00 03/08/19 09:54 Zestril PO 20 mg DAILY [facility] Administration Metformin HCl 1,000 mg 03/07/19 22:00 03/08/19 17:15 Glucophage PO 1,000 mg BIDDIAB [facility] Administration Metoprolol Tartrate 25 mg 03/08/19 18:00 Lopressor PO Q8HR [facility] Morphine Sulfate 2 mg 03/07/19 21:14 Morphine IV Q4H PRN Pain, Moderate (4-6) Ondansetron HCl 4 mg 03/07/19 21:13 Zofran IV Q8H PRN Nausea And Vomiting Sodium Chloride 10 ml 03/07/19 22:00 03/08/19 09:55 Sodium Chloride Flush Syringe 10 Ml IV 10 ml BID [facility] Administration Sodium Chloride 10 ml 03/07/19 21:13 Sodium Chloride Flush Syringe 10 Ml IV PRN PRN LINE FLUSH Tramadol HCl 50 mg 03/07/19 21:12 Ultram PO Q6HR PRN Pain
[2019-03-08] MEDS ORDERED: NON-FORMULARY (Insulin Detemir [Levemir Vial] 25 UNIT) SQ SCH (22:00)
[2019-03-08] MEDS: LANTUS SUB-Q SCH (22:15)
[2019-03-08] MEDS: ELIQUIS PO SCH (22:16)
[2019-03-09] MEDS: LOPRESSOR PO SCH ×3 (06:46→21:38)
[2019-03-09] MEDS ORDERED: LEXISCAN IV ONE ×2 (06:58→10:20)
--- NOTE | 2019-03-09 12:00 | Progress Note ---
Assessment and Plan Assessment and plan: Chest pain. EKG shows no acute ischemic changes and troponin levels are normal. Stress thallium this a.m. Paroxysmal atrial fibrillation. Unfortunately, the rhythm was not captured on telemetry strip or 12-lead EKG. Cardiology discontinued amiodarone and heparin. Continue beta nancy and eliquis. Follow-up echocardiogram. Hyperlipidemia. Continue statin. Hypertension. Continue antihypertensive medications. History Interval history: No new issues overnight. Hospitalist Physical - Constitutional Vitals: Temp Pulse Resp BP Pulse Ox 98.0 F 69 16 154/69 99 03/09/19 07:55 03/09/19 07:55 03/09/19 07:55 03/09/19 10:30 03/09/19 07:55 General appearance: Present: no acute distress - EENT Eyes: Present: PERRL, EOM intact ENT: hearing intact, clear oral mucosa, dentition normal - Neck Neck: Present: supple, normal ROM - Respiratory Respiratory effort: normal Respiratory: bilateral: CTA - Cardiovascular Rhythm: regular Heart Sounds: Present: S1 & S2. Absent: gallop, rub - Extremities Extremities: no ischemia, No edema, Full ROM - Abdominal General gastrointestinal: soft, non-tender, non-distended, normal bowel sounds - Integumentary Integumentary: Present: clear, warm, dry - Neurologic Neurologic: CNII-XII intact, moves all extremities Results - Labs CBC & Chem 7: 03/08/19 04:30 03/08/19 04:30 Labs: Laboratory Last Values WBC 7.8 K/mm3 (4.5-11.0) 03/08/19 04:30 RBC 4.08 M/mm3 (3.65-5.03) 03/08/19 04:30 Hgb 11.1 gm/dl (11.8-15.2) L 03/08/19 04:30 Hct 33.5 % (35.5-45.6) L 03/08/19 04:30 MCV 82 fl (84-94) L 03/08/19 04:30 MCH 27 pg (28-32) L 03/08/19 04:30 MCHC 33 % (32-34) 03/08/19 04:30 RDW 13.7 % (13.2-15.2) 03/08/19 04:30 Plt Count 335 K/mm3 (140-440) 03/08/19 04:30 Lymph % (Auto) 27.3 % (13.4-35.0) 03/08/19 04:30 [place] % (Auto) 7.8 % (0.0-7.3) H 03/08/19 04:30 Eos % (Auto) 1.1 % (0.0-4.3) 03/08/19 04:30 Baso % (Auto) 0.3 % (0.0-1.8) 03/08/19 04:30 Lymph # 2.1 K/mm3 (1.2-5.4) 03/08/19 04:30 [place] # 0.6 K/mm3 (0.0-0.8) 03/08/19 04:30 Eos # 0.1 K/mm3 (0.0-0.4) 03/08/19 04:30 Baso # 0.0 K/mm3 (0.0-0.1) 03/08/19 04:30 Seg Neutrophils % 63.5 % (40.0-70.0) 03/08/19 04:30 Seg Neutrophils # 5.0 K/mm3 (1.8-7.7) 03/08/19 04:30 PT 13.9 Sec. (12.2-14.9) 03/07/19 18:16 INR 1.10 (0.87-1.13) 03/07/19 18:16 APTT 27.7 Sec. (24.2-36.6) 03/07/19 18:16 Heparin Anti-Xa Level 0.25 U.I./ml (0.3-0.7) L 03/08/19 09:49 Sodium 137 mmol/L (137-145) 03/08/19 04:30 Potassium 4.1 mmol/L (3.6-5.0) 03/08/19 04:30 Chloride 104.6 mmol/L (98-107) 03/08/19 04:30 Carbon Dioxide 21 mmol/L (22-30) L 03/08/19 04:30 16 mmol/L 03/08/19 04:30 BUN 27 mg/dL (9-20) H 03/08/19 04:30 1.3 mg/dL (0.8-1.5) 03/08/19 04:30 Estimated GFR > 60 ml/min 03/08/19 04:30 21 % 03/08/19 04:30 Glucose 169 mg/dL (75-100) H 03/08/19 04:30 POC Glucose 245 (70-105) H 03/09/19 08:03 9.2 % (4-6) H 03/07/19 18:09 Calcium 9.3 mg/dL (8.4-10.2) 03/08/19 04:30 0.20 mg/dL (0.1-1.2) 03/08/19 04:30 AST 15 units/L (5-40) 03/08/19 04:30 ALT 16 units/L (7-56) 03/08/19 04:30 56 units/L (35-129) 03/08/19 04:30 126 units/L (55-170) 03/07/19 18:09 < 0.010 ng/mL (0.00-0.029) 03/08/19 09:49 7.7 g/dL (6.3-8.2) 03/08/19 04:30 3.3 g/dL (3.9-5) L 03/08/19 04:30 0.8 % 03/08/19 04:30 TSH 1.040 mlU/mL (0.270-4.200) 03/08/19 17:44 Straw (Yellow) 03/08/19 05:12 Clear (Clear) 03/08/19 05:12 6.0 (5.0-7.0) 03/08/19 05:12 Ur Specific [place] 1.015 (1.003-1.030) 03/08/19 05:12 100 mg/dl mg/dL (Negative) 03/08/19 05:12 150 mg/dL (Negative) 03/08/19 05:12 Neg mg/dL (Negative) 03/08/19 05:12 Sm (Negative) 03/08/19 05:12 Neg (Negative) 03/08/19 05:12 Neg (Negative) 03/08/19 05:12 < 2.0 mg/dL (<2.0) 03/08/19 05:12 Ur Leukocyte Esterase Neg (Negative) 03/08/19 05:12 < 1.0 /HPF (0.0-6.0) 03/08/19 05:12 3.0 /HPF (0.0-6.0) 03/08/19 05:12 1+ /HPF (Negative) 03/08/19 05:12 Few /HPF 03/08/19 05:12 Presumptive negative 03/08/19 05:12 Presumptive negative 03/08/19 05:12 Ur Barbiturates Screen Presumptive negative 03/08/19 05:12 Ur Phencyclidine Scrn Presumptive negative 03/08/19 05:12 Ur Amphetamines Screen Presumptive negative 03/08/19 05:12 U Benzodiazepines Scrn Presumptive negative 03/08/19 05:12 Presumptive negative 03/08/19 05:12 U Marijuana (THC) Screen Presumptive negative 03/08/19 05:12 Disclamer 03/08/19 05:12 Active Medications - Current Medications Current Medications: Generic Name Dose Route Start Last Admin Trade Name Freq PRN Reason Stop Dose Admin Acetaminophen 650 mg 03/07/19 21:13 Tylenol PO Q4H PRN Pain MILD(1-3)/Fever >100.5/SOMMERS Amlodipine Besylate 10 mg 03/08/19 10:00 03/08/19 09:54 Norvasc PO 10 mg DAILY [facility] Administration Apixaban 5 mg 03/08/19 22:00 03/08/19 22:16 Eliquis PO 5 mg Q12HR [facility] Administration Protocol Aspirin 81 mg 03/08/19 10:00 03/08/19 09:53 Baby Aspirin PO 81 mg QDAY [facility] Administration Atorvastatin Calcium 80 mg 03/07/19 22:00 03/08/19 22:14 Lipitor PO 80 mg QHS [facility] Administration Famotidine 20 mg 03/07/19 22:00 03/08/19 22:14 Pepcid PO 20 mg BID [facility] Administration Fish Oil 1,000 mg 03/08/19 10:00 03/08/19 09:53 Fish Oil PO 1,000 mg DAILY [facility] Administration Glyburide 10 mg 03/07/19 21:15 03/08/19 09:03 Diabeta PO Not Given QDDIAB [facility] Ibuprofen 600 mg 03/07/19 21:14 Ibuprofen PO Q6H PRN Pain, Mild (1-3) Insulin Glargine 25 units 03/08/19 22:00 03/08/19 22:15 Lantus SUB-Q Not Given QHS [facility] Lisinopril 20 mg 03/07/19 22:00 03/08/19 09:54 Zestril PO 20 mg DAILY [facility] Administration Metformin HCl 1,000 mg 03/07/19 22:00 03/08/19 17:15 Glucophage PO 1,000 mg BIDDIAB [facility] Administration Metoprolol Tartrate 25 mg 03/08/19 18:00 03/09/19 06:46 Lopressor PO Not Given Q8HR [facility] Morphine Sulfate 2 mg 03/07/19 21:14 Morphine IV Q4H PRN Pain, Moderate (4-6) Ondansetron HCl 4 mg 03/07/19 21:13 Zofran IV Q8H PRN Nausea And Vomiting Sodium Chloride 10 ml 03/07/19 22:00 03/08/19 22:15 Sodium Chloride Flush Syringe 10 Ml IV 10 ml BID [facility] Administration Sodium Chloride 10 ml 03/07/19 21:13 Sodium Chloride Flush Syringe 10 Ml IV PRN PRN LINE FLUSH Tramadol HCl 50 mg 03/07/19 21:12 Ultram PO Q6HR PRN Pain
[2019-03-09] MEDS: PEPCID PO SCH ×2 (13:43→21:39)
[2019-03-09] MEDS: NORVASC PO SCH (13:43)
[2019-03-09] MEDS: ZESTRIL PO SCH (13:43)
[2019-03-09] MEDS: BABY ASPIRIN PO SCH (13:43)
[2019-03-09] MEDS: GLUCOPHAGE PO SCH ×2 (13:44→18:12)
[2019-03-09] MEDS: ELIQUIS PO SCH ×2 (13:44→21:39)
[2019-03-09] MEDS: FISH OIL PO SCH (13:44)
[2019-03-09] MEDS: DIABETA PO SCH (13:44)
[2019-03-09] MEDS: SODIUM CHLORIDE FLUSH SYRINGE 10 ML IV SCH ×2 (13:45→21:39)
--- NOTE | 2019-03-09 14:20 | Event Note ---
Date: 03/09/19 The patient underwent a Lexiscan thallium stress test, results show normal myocardial perfusion, normal liver ventricular systolic function. Thallium stress test was normal. An echocardiogram also reports normal left ventricular systolic function, ejection fraction greater than 60%. Most significant finding on the echocardiogram was a markedly thickened and calcified aortic valve with restricted opening. Doppler assessment shows mild to moderate aortic stenosis with a mean gradient of 12. Recommendations: Continue medical therapy outlined, beta blockers and oral anticoagulation for paroxysmal atrial fibrillation. Mild aortic stenosis should be followed closely in the outpatient with serial echocardiograms.
[2019-03-09 14:31] LABS: Hemoglobin 11.3 gm/dl (11.8-15.2)
[2019-03-09] MEDS: LANTUS SUB-Q SCH (21:47)
--- NOTE | 2019-03-09 23:34 | Treadmill Report ---
THALLIUM STRESS TEST REPORT LEFT VENTRICLE: Left ventricular chamber size is within normal spread. Perfusion study demonstrates homogeneous uptake of the trace in all segments. No significant perfusion defects identified. Gated analysis demonstrates normal left ventricular systolic function, ejection fraction of 55%. CONCLUSION: Normal myocardial perfusion study. JOB# [id number] CA/NTS
[2019-03-10] MEDS: LOPRESSOR PO SCH ×2 (05:29→15:28)
[2019-03-10 05:55] LABS: Basophils % (Auto) 0.3 % (0.0-1.8); Eosinophils # (Auto) 0.2 K/mm3 (0.0-0.4); Eosinophils % (Auto) 2.7 % (0.0-4.3); Hematocrit 36.5 % (35.5-45.6); Hemoglobin 11.9 gm/dl (11.8-15.2); Lymphocytes # (Auto) 1.7 K/mm3 (1.2-5.4); Lymphocytes % (Auto) 23.4 % (13.4-35.0); Mean Corpuscular HGB Conc 33 % (32-34); Mean Corpuscular Volume 83 fl (84-94); Monocytes # (Auto) 0.5 K/mm3 (0.0-0.8); Platelet Count 337 K/mm3 (140-440); Red Blood Count 4.42 M/mm3 (3.65-5.03); Red Cell Distribution Width 13.6 % (13.2-15.2)
[2019-03-10 06:18] LABS: BUN/Creatinine Ratio 19; Blood Urea Nitrogen 26 mg/dL (9-20); Calcium 9.4 mg/dL (8.4-10.2)
[2019-03-10 06:19] LABS: Hemolysis Index 3
[2019-03-10] MEDS: FISH OIL PO SCH (09:18)
[2019-03-10] MEDS: PEPCID PO SCH (09:18)
[2019-03-10] MEDS: GLUCOPHAGE PO SCH ×2 (09:18→16:49)
[2019-03-10] MEDS: ZESTRIL PO SCH (09:18)
[2019-03-10] MEDS: BABY ASPIRIN PO SCH (09:18)
[2019-03-10] MEDS: DIABETA PO SCH (09:19)
[2019-03-10] MEDS: NORVASC PO SCH (09:19)
[2019-03-10] MEDS: ELIQUIS PO SCH (09:19)
[2019-03-10] MEDS: SODIUM CHLORIDE FLUSH SYRINGE 10 ML IV SCH (09:27)
--- NOTE | 2019-03-10 10:15 | Discharge Summary ---
Providers - Providers Date of Admission: 03/07/19 20:35 Date of discharge: 03/10/19 Attending physician: PATRICIA SAUNDERS 03/07/19 18:56 Consult to Physician [CONS] Routine Comment: Consulting Provider: FLORES CHILDS Physician Instructions: Reason For Exam: cp. afib [facility] Hospital[facility] Reason for admission: cp Condition: Critical Hospital course: 68-year-old man with a history of hypertension and diabetes, no prior cardiac history who presented to the emergency room one day prior to admission with complaints of dizziness, weakness and nonexertional chest pain. Serial EKGs in the emergency room showed a sinus rhythm with left ventricular hypertrophy and repolarization abnormalities of LVH. No acute ST or T-wave changes of ischemia or infarction. Serial cardiac troponin levels were normal. It is reported that in the emergency room patient had short episodes of rapid atrial fibrillation, reportedly not captured on ECG or telemetry. The patient received intravenous amiodarone and intravenous heparin. During his telemetry course in the [facility], there has been a stable sinus rhythm both on the strips on the floor and on the serial multiple ECGs performed. The patient denies any prior history of atrial fibrillation or prior treatment with oral anticoagulation. Chest x-ray revealed normal cardiac silhouette, clear lungs, benign chest x-ray. Echocardiogram revealed normal left ventricular systolic function, EF 60-65%. Most significant finding on the echocardiogram was a markedly thickened and calcified aortic valve with restricted opening. Doppler assessment shows mild to moderate aortic stenosis with a mean gradient of 12. Cardiology saw the patient in consultation and recommended beta blockers and oral anticoagulation for paroxysmal atrial fibrillation. The mild aortic stenosis should be followed closely in the outpatient with serial echocardiograms. Patient is otherwise stable and is felt to have received maximal hospital benefit for discharge. Dedicated discharge time 32 minutes. f/u with [facility] March 24 at 250p. Disposition: - TO HOME OR SELFCARE Time spent for discharge: 32 - Discharge Diagnoses (1) Afib Status: Acute Qualifiers: Atrial fibrillation type: paroxysmal Qualified Code(s): I48.0 - Paroxysmal atrial fibrillation (2) Chest pain Status: Acute Qualifiers: Chest pain type: unspecified Qualified Code(s): R07.9 - Chest pain, unspecified (3) New onset a-fib Status: Acute (4) Paroxysmal atrial fibrillation Status: Acute (5) HLD (hyperlipidemia) Status: Chronic Qualifiers: Hyperlipidemia type: mixed hyperlipidemia Qualified Code(s): E78.2 - Mixed hyperlipidemia (6) HTN (hypertension) Status: Chronic Qualifiers: Hypertension type: essential hypertension Qualified Code(s): I10 - Essential (primary) hypertension (7) IDDM (insulin dependent diabetes mellitus) Status: Chronic Core Measure Documentation - Palliative Care Palliative Care/ Comfort Measures: Not Applicable - Core Measures Any of the following diagnoses?: none Exam - Constitutional Vitals: Temp Pulse Resp BP Pulse Ox 98.3 F 60 16 135/66 100 03/10/19 07:49 03/10/19 09:19 03/10/19 07:49 03/10/19 09:19 03/10/19 07:49 General appearance: Present: no acute distress, well-nourished - EENT Eyes: Present: PERRL ENT: hearing intact, clear oral mucosa - Neck Neck: Present: supple, normal ROM - Respiratory Respiratory effort: normal Respiratory: bilateral: CTA - Cardiovascular Heart Sounds: Present: S1 & S2. Absent: rub, click - Extremities Extremities: pulses symmetrical, No edema Peripheral Pulses: within normal limits - Abdominal General gastrointestinal: Present: soft, non-tender, non-distended, normal bowel sounds Male genitourinary: Present: normal - Integumentary Integumentary: Present: clear, warm, dry - Musculoskeletal Musculoskeletal: gait normal, strength equal bilaterally - Psychiatric Psychiatric: appropriate mood/affect, intact judgment & insight - Neurologic Neurologic: CNII-XII intact, moves all extremities Plan Activity: advance as tolerated Weight Bearing Status: Weight Bear as Tolerated Diet: low fat, low cholesterol, low salt, diabetic Follow up with: FLORES CHILDS MD [Staff Physician] - 7 Days CARTHAGE GERMAIN DODD MD [Primary Care Provider] - 3-5 Days Prescriptions: Aspirin [Aspirin BABY CHEW TAB] 81 mg PO QDAY #30 tab.chew Apixaban [Eliquis] 5 mg PO Q12HR #30 tablet [place]-3 Fatty Acids/Fish Oil [Fish Oil] 1 cap PO DAILY #30 capsule metFORMIN [Glucophage] 1,000 mg PO BIDDIAB #60 tablet AtorvaSTATin [Lipitor] 80 mg PO QHS #30 tablet Metoprolol [Lopressor TAB] 25 mg PO Q8HR #90 tablet amLODIPine [Norvasc] 10 mg PO DAILY #30 tablet Famotidine [Pepcid] 20 mg PO BID #60 tablet Lisinopril [Zestril TAB] 20 mg PO DAILY #30 tablet
--- NOTE | 2019-03-10 11:10 | Progress Note ---
<STEPHANIE VIGIL - Last Filed: 03/10/19 11:11> Assessment and Plan Paroxysmal Atrial fibrillation initiated on eliquis for oral anticoagulation on metoprolol for suppression Atypical chest pain Diabetes Hypertension Normal myocardial perfusion stress thallium test this admission. Echocardiogram reports normal left ventricular systolic function, EF 60-65%. Most significant finding on the echocardiogram was a markedly thickened and calcified aortic valve with restricted opening. Doppler assessment shows mild to moderate aortic stenosis with a mean gradient of 12. Recommendations: Continue beta blockers and oral anticoagulation for paroxysmal atrial fibrillation. Mild aortic stenosis should be followed closely in the outpatient with serial echocardiograms. Once discharged, patient will f/u with [facility] March 24 at 250p. Subjective Date of service: 03/10/19 Interval history: Patient is sitting up in bedside chair. He has no complaints. Stable sinus rhythm on telemetry. Objective Vital Signs Temp Pulse Pulse Resp BP Pulse Ox 03/10/19 11:00 75 03/10/19 09:19 60 135/66 03/10/19 09:18 135/66 03/10/19 07:49 98.3 F 53 L 16 135/66 100 03/10/19 05:29 80 134/69 03/10/19 04:03 98.0 F 54 L 18 134/69 99 03/10/19 02:00 60 03/09/19 23:45 98.5 F 67 18 131/70 99 03/09/19 21:38 70 132/69 03/09/19 20:51 20 03/09/19 19:19 98.2 F 63 18 132/69 98 03/09/19 18:22 63 03/09/19 16:20 98.0 F 63 16 146/75 99 03/09/19 12:10 98.2 F 70 16 159/78 98 - Physical Examination General: No Apparent Distress HEENT: Positive: PERRL Neck: Positive: neck supple Cardiac: Positive: Reg Rate and Rhythm Lungs: Positive: Decreased Breath Sounds Neuro: Positive: Grossly Intact Abdomen: Positive: Soft Extremities: Absent: edema - Labs and Meds CBC 03/09/19 03/10/19 Range/Units 13:57 05:36 WBC 7.3 (4.5-11.0) K/mm3 RBC 4.42 (3.65-5.03) M/mm3 Hgb 11.3 L 11.9 (11.8-15.2) gm/dl Hct 34.0 L 36.5 (35.5-45.6) % Plt Count 332 337 (140-440) K/mm3 Lymph # 1.7 (1.2-5.4) K/mm3 [place] # 0.5 (0.0-0.8) K/mm3 Eos # 0.2 (0.0-0.4) K/mm3 Baso # 0.0 (0.0-0.1) K/mm3 Comprehensive Metabolic Panel 03/09/19 03/10/19 Range/Units 21:22 05:36 Sodium 138 (137-145) mmol/L Potassium 4.6 (3.6-5.0) mmol/L Chloride 103.4 (98-107) mmol/L Carbon Dioxide 21 L (22-30) mmol/L BUN 26 H (9-20) mg/dL Creatinine 1.4 (0.8-1.5) mg/dL Glucose 87 76 (75-100) mg/dL Calcium 9.4 (8.4-10.2) mg/dL <FLORES CHILDS - Last Filed: 03/10/19 13:06> Assessment and Plan I've seen and evaluated the patient agree with this assessment and plan. Patient is a history of paroxysmal atrial fibrillation currently rate controlled on metoprolol. Continue anticoagulation with eloquent's. Patient is stable ready for discharge from cardiac standpoint. Objective Vital Signs Temp Pulse Pulse Resp BP Pulse Ox 03/10/19 11:00 75 03/10/19 10:00 57 L 03/10/19 09:19 60 135/66 03/10/19 09:18 135/66 03/10/19 07:49 98.3 F 53 L 16 135/66 100 03/10/19 05:29 80 134/69 03/10/19 04:03 98.0 F 54 L 18 134/69 99 03/10/19 02:00 60 03/09/19 23:45 98.5 F 67 18 131/70 99 03/09/19 21:38 70 132/69 03/09/19 20:51 20 03/09/19 19:19 98.2 F 63 18 132/69 98 03/09/19 18:22 63 03/09/19 16:20 98.0 F 63 16 146/75 99 - Labs and Meds CBC 03/09/19 03/10/19 Range/Units 13:57 05:36 WBC 7.3 (4.5-11.0) K/mm3 RBC 4.42 (3.65-5.03) M/mm3 Hgb 11.3 L 11.9 (11.8-15.2) gm/dl Hct 34.0 L 36.5 (35.5-45.6) % Plt Count 332 337 (140-440) K/mm3 Lymph # 1.7 (1.2-5.4) K/mm3 [place] # 0.5 (0.0-0.8) K/mm3 Eos # 0.2 (0.0-0.4) K/mm3 Baso # 0.0 (0.0-0.1) K/mm3 Comprehensive Metabolic Panel 03/09/19 03/10/19 Range/Units 21:22 05:36 Sodium 138 (137-145) mmol/L Potassium 4.6 (3.6-5.0) mmol/L Chloride 103.4 (98-107) mmol/L Carbon Dioxide 21 L (22-30) mmol/L BUN 26 H (9-20) mg/dL Creatinine 1.4 (0.8-1.5) mg/dL Glucose 87 76 (75-100) mg/dL Calcium 9.4 (8.4-10.2) mg/dL
[2019-03-10 15:29] VITALS: BP 146/66
== END 2019-03-10 20:18 | disposition home or self-care (01) | DRG 308 ==
LOC: ED 17:46 → 4A 20:35
PROVIDERS: ADMIT Internal Medicine; ATTEND Hospitalist
DX: I48.0 Paroxysmal atrial fibrillation (principal); N17.0 Acute kidney failure with tubular necrosis; E11.9 Type 2 diabetes mellitus without complications; R51 Headache; E78.2 Mixed hyperlipidemia; I35.0 Nonrheumatic aortic (valve) stenosis; I11.9 Hypertensive heart disease without heart failure; R07.89 Other chest pain; Z79.82 Long term (current) use of aspirin; Z79.4 Long term (current) use of insulin; Z89.411 Acquired absence of right great toe
CPT/HCPCS: 36415; 71045; 78452; 80048; 80053; 80307; 81001; 82550; 82947; 82962; 83036; 84443; 84484; 85014; 85018; 85025; 85049; 85520; 85610; 85730; 93005; 93010; 93017; 93306; G0378; A9270-GY; A9502; J0282; J1644; J1815; J2785; J7060

== ENCOUNTER 2019-07-22 16:42 | Emergency (ER) | payer MEDICARE ==
--- NOTE | 2019-07-22 17:57 | Emergency Department Report ---
Blank Doc - Documentation Documentation: 69-year-old male that presents with SOB, dizziness, blurry vision, and weakness. Stated has not been taking diabetes medications. This initial assessment/diagnostic orders/clinical plan/treatment(s) is/are subject to change based on patient's health status, clinical progression and re- assessment by fellow clinical providers in the ED. Further treatment and workup at subsequent clinical providers discretion. Patient/guardians urged not to elope from the ED as their condition may be serious if not clinically assessed and managed. Initial orders include: 1- Patient sent to MAIN ED for further evaluation and treatment 2- UA 3- labs 4- EKG
[2019-07-22 18:41] LABS: Basophils % (Auto) 0.6 % (0.0-1.8); Eosinophils # (Auto) 0.1 K/mm3 (0.0-0.4); Eosinophils % (Auto) 1.6 % (0.0-4.3); Hematocrit 33.3 % (35.5-45.6); Hemoglobin 10.8 gm/dl (11.8-15.2); Lymphocytes # (Auto) 1.4 K/mm3 (1.2-5.4); Lymphocytes % (Auto) 23.1 % (13.4-35.0); Mean Corpuscular HGB Conc 33 % (32-34); Mean Corpuscular Volume 84 fl (84-94); Monocytes # (Auto) 0.4 K/mm3 (0.0-0.8); Monocytes % (Auto) 7.4 % (0.0-7.3); Platelet Count 307 K/mm3 (140-440); Red Blood Count 3.95 M/mm3 (3.65-5.03); Red Cell Distribution Width 14.2 % (13.2-15.2)
[2019-07-22 18:42] LABS: INR 0.96 (0.87-1.13)
[2019-07-22 18:43] LABS: Partial Thromboplastin Time 25.2 Sec. (24.2-36.6)
[2019-07-22 18:53] LABS: Alanine Aminotransferase 12 units/L (7-56); Albumin 3.7 g/dL (3.9-5); BUN/Creatinine Ratio 10; Blood Urea Nitrogen 13 mg/dL (9-20); Calcium 8.9 mg/dL (8.4-10.2); Hemolysis Index 5
--- NOTE | 2019-07-22 21:33 | Emergency Department Report ---
HPI - General Chief Complaint: Weakness Time Seen by Provider: 07/22/19 17:54 - HPI HPI: 69-year-old male presents to the emergency department with complaint of depression. The patient says that "everybody in my life has left me" and he means this in terms of they are no longer involved in his life. The patient is essentially homeless. The patient denies any hallucinations. He does admit to both suicidal and homicidal ideations. He does not have any particular plan as to how he would harm himself or others but he does have these homicidal feelings towards his family. He does not have any previously diagnosed psychiatric history. He does have a history of hypertension and zyn-uzbpjcw-uhjoktimw diabetes. The patient does take his medications but not necessarily as prescribed as he says he has "given up." The patient was concerned that his blood sugar may have been elevated as he has some recent blurry vision. He denies any headache, slurred speech or any other neurological deficits. ED Past Medical Hx - Past Medical History Previous Medical History?: Yes Hx Hypertension: Yes Hx Diabetes: Yes Hx Liver Disease: No Hx Renal Disease: No - Surgical History Past Surgical History?: Yes Additional Surgical History: R great toe amputated (12/2014) - Social History Smoking Status: Never Smoker Substance Use Type: None - Medications Home Medications: Home Medications Medication Instructions Recorded Confirmed Last Taken Type Insulin Detemir [Levemir VIAL] 25 unit SQ QAM&QHS 03/07/19 07/23/19 Unknown History Insulin Regular, Human [Novolin R] See Protocol IJ QACHS 03/07/19 07/23/19 Unknown History Apixaban [Eliquis] 5 mg PO Q12HR #30 tablet 03/10/19 07/23/19 Unknown Rx Aspirin [Aspirin BABY CHEW TAB] 81 mg PO QDAY #30 tab.chew 03/10/19 07/23/19 Unknown Rx AtorvaSTATin [Lipitor] 80 mg PO QHS #30 tablet 03/10/19 07/23/19 Unknown Rx Famotidine [Pepcid] 20 mg PO BID #60 tablet 03/10/19 07/23/19 Unknown Rx Insulin Glargine [Lantus VIAL] 25 units SUB-Q QHS units 03/10/19 07/23/19 Unknown Rx Lisinopril [Zestril TAB] 20 mg PO DAILY #30 tablet 03/10/19 07/23/19 Unknown Rx Metoprolol [Lopressor TAB] 25 mg PO Q8HR #90 tablet 03/10/19 07/23/19 Unknown Rx [place]-3 Fatty Acids/Fish Oil [Fish 1 cap PO DAILY #30 capsule 03/10/19 07/23/19 Unknown Rx Oil] amLODIPine 10 mg PO DAILY #30 tablet 03/10/19 07/23/19 Unknown Rx glyBURIDE [Diabeta] 10 mg PO QDDIAB tablet 03/10/19 07/23/19 Unknown Rx metFORMIN [Glucophage] 1,000 mg PO BIDDIAB #60 tablet 03/10/19 07/23/19 Unknown Rx ED Review of Systems ROS: Stated complaint: HBS/JAVI Other details as noted in HPI Comment: All other systems reviewed and negative Constitutional: denies: chills, fever Eyes: vision change. denies: eye pain ENT: denies: ear pain, throat pain Respiratory: denies: cough, shortness of breath Cardiovascular: denies: chest pain, palpitations Gastrointestinal: denies: abdominal pain, vomiting Genitourinary: denies: dysuria, discharge Musculoskeletal: myalgia. denies: joint swelling Skin: denies: rash, lesions Neurological: denies: headache, numbness Psychiatric: depression, homicidal thoughts, suicidal thoughts. denies: auditory hallucinations, visual hallucinations Physical Exam - Physical Exam Vital Signs: Vital Signs 07/22/19 17:54 Temperature 97 F L Pulse Rate 80 Respiratory 16 Rate Blood Pressure 154/61 O2 Sat by Pulse 100 Oximetry Physical Exam: GENERAL: The patient is well-developed well-nourished. HENT: Normocephalic. Atraumatic. Patient has moist mucous membranes. EYES: Extraocular motions are intact. NECK: Supple. Trachea is midline. CHEST/LUNGS: Clear to auscultation. There is no respiratory distress noted. HEART/CARDIOVASCULAR: Regular. There is no tachycardia. There is no murmur. ABDOMEN: Abdomen is soft, nontender. Patient has normal bowel sounds. There is no abdominal distention. SKIN: Skin is warm and dry. NEURO: The patient is awake, alert, and oriented. The patient is cooperative. The patient has no focal neurologic deficits. Normal speech. MUSCULOSKELETAL: There is no tenderness or deformity. There is no limitation range of motion. There is no evidence of acute injury. ED Course Vital Signs 07/22/19 17:54 Temperature 97 F L Pulse Rate 80 Respiratory 16 Rate Blood Pressure 154/61 O2 Sat by Pulse 100 Oximetry ED Medical Decision Making - Lab Data Result diagrams: 07/22/19 18:14 07/22/19 18:14 - Radiology Data Radiology results: report reviewed CT HEAD WITHOUT CONTRAST INDICATION / CLINICAL INFORMATION: blurry vision. Dizziness with headache. TECHNIQUE: All CT scans at this location are performed using CT dose reduction for ALARA by means of automated exposure control. COMPARISON: None available. FINDINGS: HEMORRHAGE: None. EXTRA-AXIAL SPACES: Mildly prominent likely related to cortical atrophy. VENTRICULAR SYSTEM: Mildly prominent likely related to central atrophy. CEREBRAL PARENCHYMA: White matter hypodensities likely representing microangiopathy. MIDLINE SHIFT OR HERNIATION: None. CEREBELLUM / BRAINSTEM: No significant abnormality. ORBITS: Normal as visualized. SOFT TISSUES of HEAD: No significant abnormality. CALVARIUM: No significant abnormality. PARANASAL SINUSES / MASTOID AIR CELLS: Normal as visualized. ADDITIONAL FINDINGS: None. IMPRESSION: 1. No acute intracranial abnormality. 2. Chronic and age-related findings. - Medical Decision Making This patient presents with the complaint of depression and some suicidal and homicidal ideations. He does not have any previous diagnosed psychiatric history. However the patient appears to be going through multiple different life stressors. For this reason the patient has been made a 1013. He was seen by the psychiatric product merchandiser who agrees with this plan. The patient complains of some blurry vision. He does not have any focal, motor or sensory deficits and his cranial nerves are intact. CT scan of the head wit hout contrast did not show any bleed, shift, mass, ischemia, or any other acute process. The patient would be a 0 on the NIH stroke scale. His labs are mostly unremarkable. There is some hyperglycemia but the patient does not appear in diabetic ketoacidosis. There is no significant elevation in the anion gap level. Urine drug screen is positive for cocaine but the patient does not appear acutely intoxicated. Vital signs of been stable throughout his ED course. At this time the patient appears cleared for psychiatric placement. - Differential Diagnosis depression, bipolar disorder, substance abuse Critical Care Time: No Critical care attestation.: If time is entered above; I have spent that time in minutes in the direct care of this critically ill patient, excluding procedure time. ED Disposition Clinical Impression: Suicidal ideations, Homicidal thoughts Depression Qualifiers: Depression Type: unspecified Qualified Code(s): F32.9 - Major depressive disorder, single episode, unspecified Diabetes mellitus Qualifiers: Diabetes mellitus type: other specified (including NANCY) Diabetes mellitus fpc insulin use: with fpc use Diabetes mellitus complication status: with hyperglycemia Qualified Code(s): E13.65 - Other specified diabetes mellitus with hyperglycemia Disposition: - TO HOME OR SELFCARE Is pt being admited?: No Condition: Stable Instructions: Diabetes Mellitus Type 2 in Adults (ED) Referrals: GERMAIN TO MD [Primary Care Provider] - 3-5 Days Time of Disposition: 01:01
[2019-07-22 22:57] LABS: Amphetamine Screen,Urine PRESUMPTIVE NEGATIVE; Benzodiazepines Screen,Urine PRESUMPTIVE NEGATIVE; Bilirubin,Urine NEG (Negative); Blood,Urine NEG (Negative); Cannabinoid Screen,Urine PRESUMPTIVE NEGATIVE; Color,Urine Yellow (Yellow); Methadone Screen,Urine PRESUMPTIVE NEGATIVE; Mucus,Urine FEW /HPF; Opiate Screen,Urine PRESUMPTIVE NEGATIVE; Urobilinogen,Urine < 2.0 mg/dL (<2.0)
[2019-07-22 23:08] LABS: Cocaine Screen,Urine PRESUMPTIVE POSITIVE
--- NOTE | 2019-07-22 23:23 | Cat Scan Report ---
CT HEAD WITHOUT CONTRAST INDICATION / CLINICAL INFORMATION: blurry vision. Dizziness with headache. TECHNIQUE: All CT scans at this location are performed using CT dose reduction for ALARA by means of automated e xposure control. COMPARISON: None available. FINDINGS: HEMORRHAGE: None. EXTRA-AXIAL SPACES: Mildly prominent likely related to cortical atrophy. VENTRICULAR SYSTEM: Mildly prominent likely related to central atrophy. CEREBRAL PARENCHYMA: White matter hypodensities likely representing microangiopathy. MIDLINE SHIFT OR HERNIATION: None. CEREBELLUM / BRAINSTEM: No significant abnormality. ORBITS: Normal as visualized. SOFT TISSUES of HEAD: No significant abnormality. CALVARIUM: No significant abnormality. PARANASAL SINUSES / MASTOID AIR CELLS: Normal as visualized. ADDITIONAL FINDINGS: None. IMPRESSION: 1. No acute intracranial abnormality. 2. Chronic and age-related findings. Signer Name: Angeline Bautista MD Signed: 07/22/2019 11:19 PM Workstation Name: [id number]
[2019-07-23] MEDS ORDERED: diphenhydrAMINE 25 MG CAP PO ONE ×2 (00:04→00:09)
[2019-07-23] MEDS: METOPROLOL TARTRATE 25 MG TAB PO SCH ×3 (07:14→22:55)
[2019-07-23] MEDS: metFORMIN 500 MG TAB PO SCH ×2 (09:02→17:07)
--- NOTE | 2019-07-23 09:24 | Consultation ---
History of Present Illness - Reason for Consult Consult date: 07/23/19 Reason for consult: Mental Health Evaluation Requesting physician: ANIBAL CODY - Chief Complaint Chief complaint: "My family isn't right" - History of Present Psychiatric Illness 69 y.o. AA male who presented to the ER for depression and SI?HI's. Today the patient was calm during the assessment. He is adamant that his family don't want his around anymore. He was several questions about his situation, but some of his answers were not logical. He would change his answers to questions throughout the interview. He was able to state his and the current [place] President. He recalled 1/3 numbers within 5 mins. He denies HI's and AVH's. He would not confirm or deny SI's. He stated that he heart strange voices "often." Per the record, there's no collateral information that can be obtained at this time. Medications and Allergies Allergies Allergy/AdvReac Type Severity Reaction Status Date / Time No Known Allergies Allergy Verified 06/28/14 03:51 Home Medications Medication Instructions Recorded Confirmed Last Taken Type Insulin Detemir [Levemir VIAL] 25 unit SQ QAM&QHS 03/07/19 07/23/19 Unknown History Insulin Regular, Human [Novolin R] See Protocol IJ QACHS 03/07/19 07/23/19 Unknown History Apixaban [Eliquis] 5 mg PO Q12HR #30 tablet 03/10/19 07/23/19 Unknown Rx Aspirin [Aspirin BABY CHEW TAB] 81 mg PO QDAY #30 tab.chew 03/10/19 07/23/19 Unknown Rx AtorvaSTATin [Lipitor] 80 mg PO QHS #30 tablet 03/10/19 07/23/19 Unknown Rx Famotidine [Pepcid] 20 mg PO BID #60 tablet 03/10/19 07/23/19 Unknown Rx Insulin Glargine [Lantus VIAL] 25 units SUB-Q QHS units 03/10/19 07/23/19 Unknown Rx Lisinopril [Zestril TAB] 20 mg PO DAILY #30 tablet 03/10/19 07/23/19 Unknown Rx Metoprolol [Lopressor TAB] 25 mg PO Q8HR #90 tablet 03/10/19 07/23/19 Unknown Rx [place]-3 Fatty Acids/Fish Oil [Fish 1 cap PO DAILY #30 capsule 03/10/19 07/23/19 Unknown Rx Oil] amLODIPine 10 mg PO DAILY #30 tablet 03/10/19 07/23/19 Unknown Rx glyBURIDE [Diabeta] 10 mg PO QDDIAB tablet 03/10/19 07/23/19 Unknown Rx metFORMIN [Glucophage] 1,000 mg PO BIDDIAB #60 tablet 03/10/19 07/23/19 Unknown Rx Active Meds: Active Medications Amlodipine Besylate (Amlodipine) 10 mg PO DAILY HAIR Apixaban (Eliquis) 5 mg PO Q12HR HAIR; Protocol Atorvastatin Calcium (Lipitor) 80 mg PO QHS HAIR Metformin HCl (Glucophage) 1,000 mg PO BIDDIAB [facility] Last Admin: 07/23/19 09:02 Dose: 1,000 mg Documented by: Metoprolol Tartrate (Metoprolol) 25 mg PO Q8HR HAIR Last Admin: 07/23/19 07:14 Dose: 25 mg Documented by: Past psychiatric history - Past Medical History Past Medical History: diabetes, hypertension Past Surgical History: No surgical history - past Psychiatric treatment and history psychiatric treatment history: Would not confirm or deny a psy hx. Denies a fam psy hx. - Social History Social history: other (Unable to obtain) Mental Status Exam - Vital signs Last Vital Signs Temp 98.4 F 07/23/19 07:00 Pulse 58 L 07/23/19 07:00 Resp 17 07/23/19 07:00 BP 169/78 07/23/19 07:00 Pulse Ox 100 07/23/19 07:00 - Exam Narrative exam: MSE: Appearance: calm Behavior: regular eye contact Speech: regular rate and tone Mood:: "okay" Affect: congruent to mood Thought Process: confusion Thought Content: denies SI/HI's and VH's, intermittent AH's Motor Activity: ambulatory Cognition: A/O x 2 Insight: variable Judgment: poor Results Result Diagrams: 07/22/19 18:14 07/22/19 18:14 Abnormal lab results 07/22/19 07/22/19 07/22/19 Range/Units 16:59 18:09 18:14 Hgb 10.8 L (11.8-15.2) gm/dl Hct 33.3 L (35.5-45.6) % MCH 27 L (28-32) pg [place] % (Auto) 7.4 H (0.0-7.3) % Glucose (75-100) mg/dL POC Glucose 270 H 251 H (70-105) Albumin (3.9-5) g/dL 07/22/19 Range/Units 18:14 Hgb (11.8-15.2) gm/dl Hct (35.5-45.6) % MCH (28-32) pg [place] % (Auto) (0.0-7.3) % Glucose 228 H (75-100) mg/dL POC Glucose (70-105) Albumin 3.7 L (3.9-5) g/dL All other labs normal. Assessment and Plan Assessment and plan: Impression: Unspecified Mood DO with psy features. Today the patient was calm during the assessment. DDx: Unspecified Neuro Cog DO, MDD, Bipolar DO Recommendation/Plan: Continue 1013 and attempt to gather collateral information. Dispo: The patient was referred to the [address] [place] [address] ([facility]). Will staff with Dr Trina Corcoran.
[2019-07-23] MEDS ORDERED: amLODIPine 10 MG TAB PO SCH (10:00)
[2019-07-23] MEDS: APIXABAN 5 MG TAB PO SCH ×2 (10:33→22:54)
[2019-07-23] MEDS ORDERED: diphenhydrAMINE 25 MG CAP PO PRN (22:14)
[2019-07-23 23:10] VITALS: BP 142/67
== END 2019-07-24 06:54 | disposition home or self-care (01) ==
LOC: ED 16:42 → EEVIPCON 16:42 → ED 07-24 06:54
DX: F39 Unspecified mood [affective] disorder (principal); F32.9 Major depressive disorder, single episode, unspecified; I10 Essential (primary) hypertension; R06.02 Shortness of breath; H57.89 Other specified disorders of eye and adnexa; R53.1 Weakness; Z79.4 Long term (current) use of insulin; Z79.899 Other long term (current) drug therapy
CPT/HCPCS: 36415; 70450; 80053; 80307; 81001; 82140; 82962; 84484; 85025; 85610; 85730; 87086; 93005; 93010; 99285; A9270; 80320; G0480

== ENCOUNTER 2022-04-10 10:32 | Emergency (ER) | payer MEDICARE ==
--- NOTE | 2022-04-10 11:24 | XRay Report ---
CHEST 2 VIEWS INDICATION / CLINICAL INFORMATION: sob. COMPARISON: 01/11/2020 FINDINGS: SUPPORT DEVICES: None. HEART / MEDIASTINUM: No significant abnormality. LUNGS / PLEURA: No significant pulmonary or pleural abnormality. No pneumothorax. ADDITIONAL FINDINGS: No significant additional findings. IMPRESSION: 1. No acute findings. Signer Name: Ignacio Yepez MD Signed: 04/10/2022 11:20 AM Workstation Name: [id number]
--- NOTE | 2022-04-10 11:46 | Emergency Department Report ---
Minor Respiratory - HPI Chief Complaint: Upper Respiratory Infection Stated Complaint: MUSCLE ACHES Time Seen by Provider: 04/10/22 11:40 Duration: 2 Days Pain Location: Chest Severity: mild Minor Respiratory: Yes Able to Tolerate Fluids, No Rhinorrhea, No Sore Throat, No Ear Pain, No Cough, No Sick Contacts, No Hemoptysis, No Chest Pain, No Shortness of Breath, No Fever Other History: Patient is a 71-year-old male that comes to the emergency room from the home where he lives because of a COVID exposure. He came via EMS. I think he was intending to get a rapid COVID test given recent exposure. On exam he denies any symptoms. He has no hypotension, tachycardia or fever. He has no chest pain or shortness of breath. ED Review of Systems ROS: Stated complaint: MUSCLE ACHES Other details as noted in HPI Comment: All other systems reviewed and negative ED Past Medical Hx - Past Medical History Previous Medical History?: Yes Hx Hypertension: Yes Hx Diabetes: Yes Hx Liver Disease: No Hx Renal Disease: No - Surgical History Past Surgical History?: Yes Additional Surgical History: R great toe amputated (12/2014) - Family History Family history: no significant - Social History Smoking Status: Unknown if ever smoked Substance Use Type: None - Medications Home Medications: Home Medications Medication Instructions Recorded Confirmed Last Taken Type Apixaban [Eliquis] 5 mg PO Q12HR #60 tablet 01/14/20 Unknown Rx Aspirin [Aspirin BABY CHEW TAB] 81 mg PO QDAY #30 tab.chew 01/14/20 Unknown Rx AtorvaSTATin [Lipitor] 80 mg PO QHS #30 tablet 01/14/20 Unknown Rx Famotidine [Pepcid] 20 mg PO BID #60 tablet 01/14/20 Unknown Rx Insulin NPH, Human [NovoLIN N] 18 unit SUB-Q BIDDIAB #1 vial 01/14/20 Unknown Rx Lispro Insulin [HumaLOG] 0 unit SUB-Q AC #1 vial 01/14/20 Unknown Rx Metoprolol [Lopressor TAB] 100 mg FEEDTUBE BID #60 tablet 01/14/20 Unknown Rx [place]-3 Fatty Acids/Fish Oil [Fish 1 cap PO DAILY #30 capsule 01/14/20 Unknown Rx Oil] amLODIPine 10 mg PO QDAY #30 tablet 01/14/20 Unknown Rx glyBURIDE [Diabeta] 10 mg PO QDDIAB #60 tablet 01/14/20 Unknown Rx metFORMIN [Glucophage] 1,000 mg PO BIDDIAB #60 tablet 01/14/20 Unknown Rx Minor Respiratory Exam - Exam General: Vital signs noted. No distress. Alert and acting appropriately. HEENT: Yes Moist Mucous Membranes, No Pharyngeal Erythema, No Pharyngeal Exudates, No Rhinorrhea, No Conjuctival Injection, No Frontal Tenderness, No Maxillary Tenderness Ear: Neither TM Bulge, Neither TM Erythema, Neither EAC Pain, Neither EAC Discharge Neck: Yes Supple, No Adenopathy Lungs: Yes Good Air Exchange, No Wheezes, No [place], No Stridor, No Cough, No Labored Respirations, No Retractions, No Use of Accessory Muscles, No Other Abnormal Lung Sounds Heart: Yes Regular, No Murmur Abdomen: Yes Normal Bowel Sounds, No Tenderness, No Peritoneal Signs Skin: No Rash, No Edema Neurologic: Alert and oriented, no deficits. Musculoskeletal: Unremarkable. ED Course Vital Signs 04/10/22 10:35 Temperature 98.7 F Pulse Rate 100 H Respiratory 18 Rate Blood Pressure 105/80 [Left] O2 Sat by Pulse 98 Oximetry ED Medical Decision Making - Radiology Data Radiology results: report reviewed, image reviewed nap - Medical Decision Making Vital Signs 04/10/22 10:35 Temperature 98.7 F Pulse Rate 100 H Respiratory 18 Rate Blood Pressure 105/80 [Left] O2 Sat by Pulse 98 Oximetry xray nap Patient educated on how to obtain a rapid COVID test. Patient denies any symptoms on discharge exam. He is awake alert and oriented x4. The people that he lives with encouraged him to get a COVID test because of a recent exposure. He will follow-up with PCP or urgent care. Patient ambulatory, nontoxic [id number]. Taking p.o. Patient being discharged home with discharge plan of care including diet, activity, medications and follow-up. He verbalizes understanding of plan of care. - Differential Diagnosis co covid Critical care attestation.: If time is entered above; I have spent that time in minutes in the direct care of this critically ill patient, excluding procedure time. ED Disposition Clinical Impression: Exposure to COVID-19 virus Disposition: HOME / SELF CARE / HOMELESS Is pt being admited?: No Does the pt Need Aspirin: No Condition: Stable Additional Instructions: [id number] sinus symptom management as we discussed. Follow-up with PCP or urgent care if you want a rapid COVID test. But your x- ray today does not indicate any COVID-pneumonia Stay well-hydrated with water. Motrin or Tylenol for pain or fever. Referrals: SILVA GRANT MD [Primary Care Provider] - 3-5 Days Time of Disposition: 12:06
[2022-04-10 12:35] VITALS: BP 151/78
== END 2022-04-10 12:36 | disposition home or self-care (01) ==
LOC: ED 10:32
DX: M79.18 Myalgia, other site (principal); Z20.822 Contact with and (suspected) exposure to COVID-19
CPT/HCPCS: 71046; 99283